=== PATIENT | male | born 1940 | race Caucasian/White ===

== ENCOUNTER 2018-12-07 16:35 | Inpatient (IN) | payer MEDICARE, OTHER ==
[~2018-12-07] VITALS: Ht 177.8 cm; Wt 51.7 kg
[2018-12-07] MEDS ORDERED: LOSA100T14 PO (16:59)
--- NOTE | 2018-12-07 17:01 | NUR ---
pt upright on gurney awake & comfortable, responds approp to staff, NAD, comfort measures provided, call light withiin reach.
[2018-12-07] MEDS ORDERED: PROCHLORPERAZINE 5 MG/ML, 2ML IVPush ONE (17:30)
[2018-12-07] MEDS ORDERED: SCOPOLAMINE PATCH, 1.5MG PATCH.TD72 TD ONE (17:30)
--- NOTE | 2018-12-07 17:31 | NUR ---
Pt to be admitted to medical, room 370. Report called to
[2018-12-07] MEDS ORDERED: ONDANSETRON ODT 4 MG PO PRN (18:00)
[2018-12-07] MEDS ORDERED: BISACODYL 10 MG SUPP PR PRN (18:00)
[2018-12-07] MEDS ORDERED: ENALAPRILAT 1.25 MG/ML, 2ML IVPush PRN (18:00)
[2018-12-07] MEDS ORDERED: ACETAMINOPHEN 325 MG TABLET PO PRN (18:00)
[2018-12-07] MEDS: NICOTINE 7 MG/24 HR PATCH.TD24 TD SCH (18:00)
[2018-12-07] MEDS ORDERED: POLYETHYLENE GLYCOL 17 GM PACKET PO PRN (18:00)
[2018-12-07 18:02] VITALS: BP 181/84
[2018-12-07] MEDS: SODIUM CHLORIDE FLUSH 10ML SYR IVF SCH (19:34)
[2018-12-07] MEDS: HEPARIN 5,000 UNITS/ML, 1ML SQ SCH (19:34)
[2018-12-07 20:08] VITALS: BP 165/77
[2018-12-08 01:42] VITALS: BP 153/80
[2018-12-08] MEDS: HEPARIN 5,000 UNITS/ML, 1ML SQ SCH ×3 (04:00→21:25)
[2018-12-08 06:27] LABS: BASOPHILS # (AUTO) 0.05 x10^3/uL (0-0.1); BASOPHILS % (AUTO) 1 % (0-1); EOSINOPHILS # (AUTO) 0.31 x10^3/uL (0-0.4); EOSINOPHILS % (AUTO) 5 % (1-7); LYMPHOCYTES # (AUTO) 1.99 x10^3/uL (1-3.4); LYMPHOCYTES % (AUTO) 29 % (22-44); MD NO; MEAN CORPUSCULAR HEMOGLOBIN 28.8 pg (27.5-34.5); MEAN CORPUSCULAR HGB CONC 33.8 g/dL (33.2-36.2); MEAN CORPUSCULAR VOLUME 85.3 fL (81-97); MEAN PLATELET VOLUME 7.5 fL (7.4-10.4); MONOCYTES # (AUTO) 0.58 x10^3/uL (0.2-0.8); MONOCYTES % (AUTO) 8 % (2-9); NEUTROPHILS # (AUTO) 4.06 x10^3/uL (1.8-6.8); NEUTROPHILS % (AUTO) 58 % (42-75); PLATELET COUNT 238 x10^3/uL (130-400); RED BLOOD COUNT 3.97 x10^6/uL (4.38-5.82); RED CELL DISTRIBUTION WIDTH 13.5 % (9.4-14.8)
[2018-12-08 06:35] VITALS: BP 136/73
[2018-12-08 06:38] LABS: ALANINE AMINOTRANSFERASE 12 U/L (12-78); ALBUMIN 3.1 g/dL (3.4-5.0); ANION GAP 5 mmol/L (5-15); CALCIUM 8.7 mg/dL (8.5-10.1); CHLORIDE 108 mmol/L (98-107); CHOLESTEROL, TOTAL 159 mg/dL (140-239); CREATININE 0.83 mg/dL (0.7-1.3); TRIGLYCERIDES 60 mg/dL (50-200); VLDL CHOLESTEROL 12 mg/dL (0-25)
[2018-12-08 06:40] LABS: ALKALINE PHOSPHATASE 80 U/L (45-117); BILIRUBIN,TOTAL 0.4 mg/dL (0.2-1.0); CHOL/HDL RATIO 3.9; HDL CHOL % 26 % (26-37); HDL CHOLESTEROL (DIRECT) 41 mg/dL (40-60); LDL CHOLESTEROL,CALCULATED 106 mg/dL (54-169); LDL/HDL RATIO 2.6 (0.5-3.0); TOTAL PROTEIN 6.3 g/dL (6.4-8.2)
[2018-12-08] MEDS: SENNA/DOCUSATE TABLET PO SCH (08:10)
[2018-12-08] MEDS: SODIUM CHLORIDE FLUSH 10ML SYR IVF SCH ×2 (08:10→21:25)
[2018-12-08] MEDS: LOSARTAN 50MG TABLET PO SCH (08:10)
[2018-12-08 12:50] VITALS: BP 137/79
[2018-12-08 14:00] VITALS: BP 138/73
[2018-12-08] MEDS ORDERED: OMNIPAQUE 350 MG/ML, 150 ML BOTTLE ONE (14:54)
[2018-12-08] MEDS: NICOTINE 7 MG/24 HR PATCH.TD24 TD SCH (18:00)
[2018-12-08 19:21] VITALS: BP 164/80
[2018-12-08] MEDS ORDERED: ATORVASTATIN 20 MG TABLET PO SCH (21:00)
[2018-12-09 01:30] VITALS: BP 154/77
[2018-12-09 05:10] LABS: BASOPHILS # (AUTO) 0.05 x10^3/uL (0-0.1); BASOPHILS % (AUTO) 1 % (0-1); EOSINOPHILS # (AUTO) 0.28 x10^3/uL (0-0.4); EOSINOPHILS % (AUTO) 4 % (1-7); LYMPHOCYTES # (AUTO) 2.04 x10^3/uL (1-3.4); LYMPHOCYTES % (AUTO) 28 % (22-44); MD NO; MEAN CORPUSCULAR HEMOGLOBIN 28.8 pg (27.5-34.5); MEAN CORPUSCULAR HGB CONC 34.2 g/dL (33.2-36.2); MEAN CORPUSCULAR VOLUME 84.3 fL (81-97); MEAN PLATELET VOLUME 7.1 fL (7.4-10.4); MONOCYTES # (AUTO) 0.58 x10^3/uL (0.2-0.8); MONOCYTES % (AUTO) 8 % (2-9); NEUTROPHILS # (AUTO) 4.24 x10^3/uL (1.8-6.8); NEUTROPHILS % (AUTO) 59 % (42-75); PLATELET COUNT 259 x10^3/uL (130-400); RED BLOOD COUNT 4.09 x10^6/uL (4.38-5.82); RED CELL DISTRIBUTION WIDTH 13.7 % (9.4-14.8)
[2018-12-09] MEDS: HEPARIN 5,000 UNITS/ML, 1ML SQ SCH ×2 (05:19→14:54)
[2018-12-09 05:24] LABS: ALBUMIN 3.2 g/dL (3.4-5.0); ANION GAP 6 mmol/L (5-15); CALCIUM 8.5 mg/dL (8.5-10.1); CHLORIDE 107 mmol/L (98-107)
[2018-12-09] MEDS ORDERED: ASPIRIN 81 MG TABLET EC PO SCH (09:30)
[2018-12-09 09:50] VITALS: BP 134/76
[2018-12-09] MEDS: SENNA/DOCUSATE TABLET PO SCH (10:23)
[2018-12-09] MEDS: LOSARTAN 50MG TABLET PO SCH (10:24)
[2018-12-09] MEDS: SODIUM CHLORIDE FLUSH 10ML SYR IVF SCH (10:24)
[2018-12-09 12:05] VITALS: BP 133/75
[2018-12-09] MEDS ORDERED: ATOR40TA78 PO (15:25)
[2018-12-09] MEDS ORDERED: ASPI81TA45 PO (15:25)
[2018-12-09] MEDS ORDERED: ATORVASTATIN 40 MG TABLET PO SCH (21:00)
== END 2018-12-09 17:01 | DRG 300 ==
LOC: ED 17:05 → EDIP 17:06 → ED 17:42 → 3NE 17:47 → DCLOUNGE 12-09 16:48
PROVIDERS: ADMIT Internal Medicine; ATTEND Internal Medicine
DX: I70.211 Atherosclerosis of native arteries of extremities with intermittent claudication, right leg (principal); E44.0 Moderate protein-calorie malnutrition; I71.4 Abdominal aortic aneurysm, without rupture; D64.9 Anemia, unspecified; F17.200 Nicotine dependence, unspecified, uncomplicated; I10 Essential (primary) hypertension; J44.9 Chronic obstructive pulmonary disease, unspecified; Z66 Do not resuscitate
CPT/HCPCS: 36415; 75635; 80048; 80053; 80061; 82040; 83735; 84100; 85025; 93005; 93970; G0378; J1644; Q9967

== ENCOUNTER 2019-01-05 12:46 | Inpatient (IN) | payer MEDICARE ==
[~2019-01-05] VITALS: Ht 177.8 cm; Wt 54.5 kg
[~2019-01-05 12:46] MED LIST: ASPI81TA45 PO; ATOR40TA78 PO; BACITRACIN 50,000 UNIT ONE; BUPIVACAINE/PF-EPI 0.5% 1:200K ONE; CEFAZOLIN 1,000 MG ONE; DEXAMETHASONE 4 MG/ML, 1ML ONE; LOSA100T14 PO; ONDANSETRON 2MG/ML, 2ML ONE; PROPOFOL 10 MG/ML, 20ML ONE; ROCURONIUM 10MG/ML,5ML ONE; SUCCINYLCHOLINE 20 MG/ML, 10ML ONE; THROMBIN 5,000 UNIT VIAL TP ONE
[2019-01-05 13:49] VITALS: BP 139/79
[2019-01-05] MEDS ORDERED: PROTAMINE SULFATE 10 MG/ML, 5ML ONE (14:01)
[2019-01-05] MEDS ORDERED: HEPARIN 1,000 UNITS/ML, 10ML ONE ×2 (14:01→18:13)
[2019-01-05] MEDS ORDERED: HEPARIN 5,000 UNITS/ML, 1ML ONE ×2 (14:01→14:03)
[2019-01-05] MEDS ORDERED: THROMBIN 20,000 UNIT VIAL TP ONE (14:01)
[2019-01-05] MEDS ORDERED: BACITRACIN 50,000 UNIT ONE (14:02)
[2019-01-05] MEDS ORDERED: ATOR20TA86 PO (14:04)
[2019-01-05] MEDS ORDERED: ASPI-496 PO (14:04)
[2019-01-05] MEDS: LACTATED RINGERS 1,000 ML IV SCH ×3 (14:18→20:54)
[2019-01-05] MEDS ORDERED: MIDAZOLAM 1 MG/ML, 2ML ONE (16:02)
[2019-01-05] MEDS ORDERED: FENTANYL PF 250 MCG/5ML ONE (16:02)
[2019-01-05] MEDS ORDERED: HYDROcodone/APAP 5/325 TABLET PO PRN (21:00)
[2019-01-05] MEDS ORDERED: MORPHINE SULFATE 4 MG/ML, 1ML IV PRN (21:00)
[2019-01-05] MEDS ORDERED: ONDANSETRON 2MG/ML, 2ML IVPush PRN (21:00)
[2019-01-05] MEDS: LABETALOL 5MG/ML, 20ML IVPush SCH (21:00)
[2019-01-05] MEDS ORDERED: HYDROmorphone 2 MG/ML, 1ML ONE (21:19)
[2019-01-05] MEDS ORDERED: MEPERIDINE/PF 25MG/ML,1ML ONE (21:22)
[2019-01-05] MEDS ORDERED: MEPERIDINE/PF 25MG/0.5ML IVPush PRN (21:30)
[2019-01-05] MEDS ORDERED: ONDANSETRON 2MG/ML, 2ML IV PRN (21:30)
[2019-01-05] MEDS ORDERED: FENTANYL PF 100 MCG/2ML IV PRN (21:30)
[2019-01-05] MEDS ORDERED: hydrALAzine 20 MG/ML, 1ML IV PRN (21:30)
[2019-01-05] MEDS ORDERED: PROMETHAZINE 25 MG/ML, 1ML IV PRN (21:30)
[2019-01-05] MEDS ORDERED: OXYcodone 5 MG/5 ML ORAL.SOL UDC PO PRN (21:30)
[2019-01-05] MEDS ORDERED: LABETALOL 5 MG/ML SYRINGE IV PRN (21:30)
[2019-01-05] MEDS: HYDROmorphone 2 MG/ML, 1ML IVPush PRN ×2 (21:37→21:52)
[2019-01-05 22:23] VITALS: BP 141/80
[2019-01-05 23:49] VITALS: BP 139/73
[2019-01-06] MEDS: LACTATED RINGERS 1,000 ML IV SCH (01:25)
[2019-01-06 02:59] VITALS: BP 121/64
[2019-01-06] MEDS: LABETALOL 5MG/ML, 20ML IVPush SCH ×2 (05:00→14:31)
[2019-01-06 05:15] LABS: BASOPHILS # (AUTO) 0.05 x10^3/uL (0-0.1); BASOPHILS % (AUTO) 1 % (0-1); EOSINOPHILS # (AUTO) 0.02 x10^3/uL (0-0.4); EOSINOPHILS % (AUTO) 0 % (1-7); LYMPHOCYTES # (AUTO) 0.95 x10^3/uL (1-3.4); LYMPHOCYTES % (AUTO) 9 % (22-44); MD NO; MEAN CORPUSCULAR HEMOGLOBIN 28.9 pg (27.5-34.5); MEAN CORPUSCULAR VOLUME 84.9 fL (81-97); MEAN PLATELET VOLUME 7.3 fL (7.4-10.4); MONOCYTES # (AUTO) 0.54 x10^3/uL (0.2-0.8); MONOCYTES % (AUTO) 5 % (2-9); NEUTROPHILS # (AUTO) 9.62 x10^3/uL (1.8-6.8); NEUTROPHILS % (AUTO) 86 % (42-75); PLATELET COUNT 302 x10^3/uL (130-400); RED BLOOD COUNT 3.33 x10^6/uL (4.38-5.82); RED CELL DISTRIBUTION WIDTH 13.5 % (9.4-14.8)
[2019-01-06] MEDS: ASPIRIN 325 MG TABLET EC PO SCH (05:55)
[2019-01-06 07:03] VITALS: BP 137/72
[2019-01-06] MEDS: HEPARIN 5,000 UNITS/ML, 1ML SQ SCH ×2 (07:59→17:01)
[2019-01-06 13:57] VITALS: BP 148/73
[2019-01-06 18:38] VITALS: BP 139/71
[2019-01-06] MEDS: ATORVASTATIN 40 MG TABLET PO SCH (20:26)
[2019-01-07 00:16] VITALS: BP 133/78
[2019-01-07] MEDS: HEPARIN 5,000 UNITS/ML, 1ML SQ SCH ×3 (00:38→15:45)
[2019-01-07] MEDS: ASPIRIN 325 MG TABLET EC PO SCH (06:27)
[2019-01-07 07:30] VITALS: BP 140/78
[2019-01-07] MEDS: LOSARTAN 50MG TABLET PO SCH (08:25)
[2019-01-07 13:15] VITALS: BP 115/72
[2019-01-07 18:40] VITALS: BP 136/78
[2019-01-07] MEDS: ATORVASTATIN 40 MG TABLET PO SCH (21:41)
[2019-01-08 00:13] VITALS: BP 125/70
[2019-01-08] MEDS: HEPARIN 5,000 UNITS/ML, 1ML SQ SCH ×2 (01:26→08:40)
[2019-01-08] MEDS: ASPIRIN 325 MG TABLET EC PO SCH (05:24)
[2019-01-08 06:52] VITALS: BP 134/72
[2019-01-08] MEDS: LOSARTAN 50MG TABLET PO SCH (08:40)
== END 2019-01-08 13:00 | DRG 253 ==
LOC: ORIP 12:46 → 4NOR 22:11
PROVIDERS: ADMIT Surgery; ATTEND Surgery
PROC: 03HY32Z Insertion of Monitoring Device into Upper Artery, Percutaneous Approach (ICD-10-PCS; 2019-01-05)
PROC: 04CK0ZZ Extirpation of Matter from Right Femoral Artery, Open Approach (ICD-10-PCS; principal; 2019-01-06)
PROC: B41F1ZZ Fluoroscopy of Right Lower Extremity Arteries using Low Osmolar Contrast (ICD-10-PCS; 2019-01-06)
PROC: 04UK0KZ Supplement Right Femoral Artery with Nonautologous Tissue Substitute, Open Approach (ICD-10-PCS; 2019-01-06)
PROC: 041K0ZL Bypass Right Femoral Artery to Popliteal Artery, Open Approach (ICD-10-PCS; 2019-01-06)
PROC: 06BP0ZZ Excision of Right Saphenous Vein, Open Approach (ICD-10-PCS; 2019-01-06)
DX: I70.221 Atherosclerosis of native arteries of extremities with rest pain, right leg (principal); Z68.1 Body mass index [BMI] 19.9 or less, adult; I99.8 Other disorder of circulatory system; R63.6 Underweight
CPT/HCPCS: 36415; 71045; 75710; 85025; 85347; 86850; 86900; 88305; 88311; 93005; G0378; J0690; J1100; J1170; J1644; J2175; J2250; J2405; J2704; J2720; J3010; C1768; J0330; J7120

== ENCOUNTER 2020-03-23 12:22 | Inpatient (IN) | payer MEDICARE, MEDICAID ==
[~2020-03-23] VITALS: Ht 177.8 cm; Wt 68.4 kg
[~2020-03-23 12:22] MED LIST changes: +ACET325T26 PO; +ALEN10TA10 PO; +ASPI-496 PO; +ATOR20TA86 PO; -BACITRACIN 50,000 UNIT ONE; -BUPIVACAINE/PF-EPI 0.5% 1:200K ONE; +CALC1TAB68 PO; +CARV3.1212 PO; -CEFAZOLIN 1,000 MG ONE; -DEXAMETHASONE 4 MG/ML, 1ML ONE; +ENOX40SY4 SQ; +FERR-51 PO; +MAGN400T50 PO; -ONDANSETRON 2MG/ML, 2ML ONE; -PROPOFOL 10 MG/ML, 20ML ONE; -ROCURONIUM 10MG/ML,5ML ONE; -SUCCINYLCHOLINE 20 MG/ML, 10ML ONE; -THROMBIN 5,000 UNIT VIAL TP ONE
[2020-03-23] MEDS ORDERED: SODIUM CHLORIDE 0.9% 1,000 ML IV ONE (12:26)
[2020-03-23] MEDS ORDERED: HYDROmorphone 1 MG/ML, 1ML INJ IVPush PRN ×2 (12:30→17:00)
[2020-03-23] MEDS ORDERED: ONDANSETRON 2MG/ML, 2ML IVPush ONE (12:30)
[2020-03-23] MEDS ORDERED: SODIUM CHLORIDE FLUSH 10ML SYR IVF ONE (12:30)
--- NOTE | 2020-03-23 12:36 | NUR ---
PT BIB EMS FROM [facility]. PT FOUND TO HAVE RIGHT HIP FRACTURE. CMS INTACT. DENIES CP OR SOB. AFEBRILE. PT STATES HE WENT TO BATHROOM AND SLIPPED. DENIES LOC OR OTHER INJURY. PAIN 04/09. PT REFUSING PAIN MEDS AT THIS TIME. VSS. IV IN ROUTE. 500 ML NS.
[2020-03-23 12:53] LABS: BASOPHILS # (AUTO) 0.03 x10^3/uL (0-0.1); BASOPHILS % (AUTO) 0 % (0-1); EOSINOPHILS # (AUTO) 0.15 x10^3/uL (0-0.4); EOSINOPHILS % (AUTO) 2 % (1-7); LYMPHOCYTES # (AUTO) 1.55 x10^3/uL (1-3.4); LYMPHOCYTES % (AUTO) 17 % (22-44); MD NO; MEAN CORPUSCULAR HEMOGLOBIN 30.2 pg (27.5-34.5); MEAN CORPUSCULAR HGB CONC 33.6 g/dL (33.2-36.2); MEAN PLATELET VOLUME 7.2 fL (7.4-10.4); MONOCYTES # (AUTO) 0.57 x10^3/uL (0.2-0.8); MONOCYTES % (AUTO) 6 % (2-9); NEUTROPHILS # (AUTO) 7.01 x10^3/uL (1.8-6.8); NEUTROPHILS % (AUTO) 75 % (42-75); PLATELET COUNT 242 x10^3/uL (130-400); RED BLOOD COUNT 3.71 x10^6/uL (4.38-5.82); RED CELL DISTRIBUTION WIDTH 13.6 % (9.4-14.8)
[2020-03-23 13:03] LABS: ALBUMIN 3.1 g/dL (3.4-5.0); ANION GAP 6 mmol/L (5-15); CALCIUM 8.2 mg/dL (8.5-10.1); CHLORIDE 109 mmol/L (98-107); CREATININE 0.87 mg/dL (0.7-1.3)
[2020-03-23 13:11] LABS: INTERNATIONAL NORMALIZED RATIO 1.02 (0.93-1.1); PROTHROMBIN TIME 10.8 Seconds (9.6-11.5)
--- NOTE | 2020-03-23 13:27 | NUR ---
TASK RN: PT STATES HE IS IN MODERATE PAIN. VSS UPDATED IN EMR AT THIS TIME. WILL MEDICATE PER MAR FOR PAIN.
[2020-03-23] MEDS ORDERED: HYDROmorphone 1 MG/ML, 1ML INJ ONE (13:33)
--- NOTE | 2020-03-23 13:38 | NUR ---
TASK RN: PT MEDICATED FOR PAIN PER MAR. PT PLACED ON 2L O2 NC AT THIS TIME. PT DENIES ANY OTHER NEEDS
[2020-03-23] MEDS ORDERED: ONDANSETRON 2MG/ML, 2ML ONE ×2 (13:44→16:57)
--- NOTE | 2020-03-23 14:15 | NUR ---
ALIZE, THE PTS POA, CALLED AND REQUESTED UPDATE BEFORE PT GOES TO SURGERY. PHONE #
--- NOTE | 2020-03-23 14:58 | NUR ---
REPORT TO OR, PT NEEDS RAPID COVID
[2020-03-23] MEDS ORDERED: CHLORHEXIDINE 15 ML UDC MM ONE (15:00)
[2020-03-23] MEDS ORDERED: FENTANYL PF 100 MCG/2ML ONE ×2 (15:32→17:50)
[2020-03-23] MEDS ORDERED: SUCCINYLCHOLINE 20 MG/ML, 10ML ONE (16:15)
[2020-03-23] MEDS ORDERED: TRANEXAMIC ACID 100 MG/ML, 10ML ONE ×2 (16:45)
[2020-03-23] MEDS ORDERED: DEXAMETHASONE 4 MG/ML, 1ML ONE (16:57)
[2020-03-23] MEDS ORDERED: PROPOFOL 10 MG/ML, 20ML ONE (16:57)
[2020-03-23] MEDS ORDERED: CEFAZOLIN 1,000 MG ONE (16:57)
[2020-03-23] MEDS ORDERED: ALBUTEROL SULFATE 2.5 MG/3 ML NPPB PRN (17:00)
[2020-03-23] MEDS ORDERED: LABETALOL 5MG/ML, 20ML IV PRN (17:00)
[2020-03-23] MEDS ORDERED: MIDAZOLAM 1 MG/ML, 2ML IV PRN (17:00)
[2020-03-23] MEDS ORDERED: hydrALAzine 20 MG/ML, 1ML IV PRN (17:00)
[2020-03-23] MEDS ORDERED: FENTANYL PF 100 MCG/2ML IV PRN (17:00)
[2020-03-23] MEDS ORDERED: ACETAMINOPHEN 325 MG TABLET PO PRN ×3 (17:00→20:30)
[2020-03-23] MEDS ORDERED: PROMETHAZINE 25 MG/ML, 1ML IVPush PRN (17:00)
[2020-03-23] MEDS ORDERED: OXYcodone 5 MG/5 ML ORAL.SOL UDC PO PRN (17:00)
[2020-03-23] MEDS ORDERED: MEPERIDINE/PF 25MG/ML,1ML ONE (17:41)
[2020-03-23] MEDS ORDERED: hydrALAzine 20 MG/ML, 1ML ONE (18:21)
[2020-03-23] MEDS ORDERED: MEPERIDINE/PF 25MG/0.5ML IVPush PRN (18:30)
[2020-03-23] MEDS ORDERED: OXYcodone 5 MG/5 ML ORAL.SOL UDC ONE (19:07)
[2020-03-23] MEDS ORDERED: PROMETHAZINE 25 MG/ML, 1ML IM PRN (19:30)
[2020-03-23] MEDS ORDERED: OXYcodone IR 5MG TABLET PO PRN (19:30)
[2020-03-23] MEDS ORDERED: MELATONIN 5 MG TABLET PO PRN (19:30)
[2020-03-23] MEDS ORDERED: POLYETHYLENE GLYCOL 17 GM PACKET PO PRN (19:30)
[2020-03-23] MEDS ORDERED: BISACODYL 10 MG SUPP PR PRN ×2 (19:30→20:30)
[2020-03-23] MEDS ORDERED: morphine SULFATE 10 MG/ML, 1ML IVPush PRN (19:30)
[2020-03-23] MEDS ORDERED: hydrALAzine 20 MG/ML, 1ML IVPush PRN (19:30)
[2020-03-23] MEDS ORDERED: HYDROcodone/APAP 5/325 TABLET PO PRN ×2 (19:30→20:30)
[2020-03-23] MEDS ORDERED: ONDANSETRON 2MG/ML, 2ML IVPush PRN (19:30)
[2020-03-23] MEDS: FERROUS SULFATE 325 MG TABLET PO SCH (19:30)
[2020-03-23] MEDS ORDERED: ENOXAPARIN 40 MG/0.4 ML SQ SCH (20:00)
[2020-03-23 20:25] VITALS: BP 130/72
[2020-03-23] MEDS ORDERED: SENNA/DOCUSATE TABLET PO PRN (20:30)
[2020-03-23] MEDS ORDERED: ALUMINUM/MAG/SIMETHICONE 30 ML UDC PO PRN (20:30)
[2020-03-23] MEDS ORDERED: HYDROmorphone 2 MG/ML, 1ML IVPush PRN (20:30)
[2020-03-23] MEDS ORDERED: ONDANSETRON 2MG/ML, 2ML IV PRN (20:30)
[2020-03-23] MEDS ORDERED: MAGNESIUM HYDROXIDE 8%, 30ML UDC PO PRN (20:30)
[2020-03-23] MEDS ORDERED: D5%-LACTATED RINGERS 1,000 ML IV SCH (20:30)
[2020-03-23 20:59] LABS: ANION GAP 9 mmol/L (5-15); CALCIUM 8.2 mg/dL (8.5-10.1); CHLORIDE 109 mmol/L (98-107); CREATININE 0.86 mg/dL (0.7-1.3)
[2020-03-23] MEDS ORDERED: SODIUM CHLORIDE FLUSH 10ML SYR IVF SCH (21:00)
[2020-03-23] MEDS: DOCUSATE 100 MG CAPSULE PO SCH (22:18)
[2020-03-23] MEDS: CALCIUM/VITAMIN D3 250-125 TABLET PO SCH (22:18)
[2020-03-23] MEDS: ATORVASTATIN 40 MG TABLET PO SCH (22:18)
[2020-03-23] MEDS: OXYcodone 5 MG/5 ML ORAL.SOL UDC PO PRN (23:32)
[2020-03-24] VITALS (7 sets, daily range): BP systolic 113–137; BP diastolic 55–76
[2020-03-24] MEDS: CEFAZOLIN PMX 2GM/50ML 50 ML IVPB SCH ×2 (00:06→08:27)
[2020-03-24 00:17] LABS: MICROSCOPIC NOT IND
[2020-03-24 06:14] LABS: BASOPHILS # (AUTO) 0.02 x10^3/uL (0-0.1); BASOPHILS % (AUTO) 0 % (0-1); EOSINOPHILS % (AUTO) 0 % (1-7); LYMPHOCYTES # (AUTO) 1.25 x10^3/uL (1-3.4); LYMPHOCYTES % (AUTO) 16 % (22-44); MD NO; MEAN CORPUSCULAR HEMOGLOBIN 30.3 pg (27.5-34.5); MEAN PLATELET VOLUME 7.5 fL (7.4-10.4); MONOCYTES # (AUTO) 0.75 x10^3/uL (0.2-0.8); MONOCYTES % (AUTO) 10 % (2-9); NEUTROPHILS # (AUTO) 5.76 x10^3/uL (1.8-6.8); NEUTROPHILS % (AUTO) 74 % (42-75); PLATELET COUNT 200 x10^3/uL (130-400); RED BLOOD COUNT 2.78 x10^6/uL (4.38-5.82); RED CELL DISTRIBUTION WIDTH 13.9 % (9.4-14.8)
[2020-03-24 06:24] LABS: ANION GAP 5 mmol/L (5-15); CALCIUM 8.2 mg/dL (8.5-10.1); CHLORIDE 110 mmol/L (98-107); CREATININE 0.96 mg/dL (0.7-1.3)
[2020-03-24] MEDS: ALENDRONATE 10 MG TABLET PO SCH (06:39)
[2020-03-24] MEDS: CARVEDILOL 3.125 MG TABLET PO SCH ×2 (06:39→18:12)
[2020-03-24] MEDS: MULTIVITAMINS/MINERALS TABLET PO SCH (08:27)
[2020-03-24] MEDS: CALCIUM/VITAMIN D3 250-125 TABLET PO SCH ×2 (08:27→20:44)
[2020-03-24] MEDS: DOCUSATE 100 MG CAPSULE PO SCH ×2 (08:27→20:43)
[2020-03-24] MEDS: ASPIRIN 81 MG TABLET EC PO SCH ×2 (08:28→20:44)
[2020-03-24 08:33] LABS: ALBUMIN 2.8 g/dL (3.4-5.0); BILIRUBIN, DIRECT 0.2 mg/dL (0.1-0.2)
[2020-03-24 08:35] LABS: BILIRUBIN,INDIRECT 0.4 mg/dL (0.0-2.0); BILIRUBIN,TOTAL 0.6 mg/dL (0.2-1.0); TOTAL PROTEIN 5.7 g/dL (6.4-8.2)
[2020-03-24] MEDS ORDERED: SENNA/DOCUSATE TABLET PO SCH (09:00)
[2020-03-24] MEDS ORDERED: LOSARTAN 100 MG TAB PO SCH (09:00)
[2020-03-24 09:18] LABS: TROPONIN I 0.043 ng/mL (0.000-0.045)
[2020-03-24] MEDS ORDERED: NITROGLYCERIN 0.4 MG BOTTLE (25 TABS) SL PRN (10:00)
[2020-03-24] MEDS ORDERED: NITROGLYCERIN 0.4 MG/SPRAY SL PRN (10:00)
[2020-03-24] MEDS ORDERED: CEFTRIAXONE PMX 1GM/50ML 50 ML IV SCH (10:00)
[2020-03-24] MEDS ORDERED: morphine SULFATE 10 MG/ML, 1ML IVPush PRN (10:30)
[2020-03-24] MEDS: OXYcodone 5 MG/5 ML ORAL.SOL UDC PO PRN (10:44)
[2020-03-24] MEDS: METRONIDAZOLE PMX 500MG/100ML 100 ML IV SCH ×2 (12:06→20:43)
[2020-03-24 16:06] LABS: TROPONIN I 0.047 ng/mL (0.000-0.045)
[2020-03-24] MEDS ORDERED: D5%-LACTATED RINGERS 1,000 ML IV SCH (20:30)
[2020-03-24] MEDS: ATORVASTATIN 40 MG TABLET PO SCH (20:43)
[2020-03-24 21:13] LABS: TROPONIN I 0.042 ng/mL (0.000-0.045)
[2020-03-25 02:04] VITALS: BP 102/66
[2020-03-25] MEDS ORDERED: methylPREDNISolone SOD SUCC 40 MG/ML IV PRN (05:30)
[2020-03-25] MEDS ORDERED: methylPREDNISolone SOD SUCC 40 MG/ML IV SCH ×2 (05:30→06:00)
[2020-03-25 05:55] LABS: ANION GAP 6 mmol/L (5-15); CALCIUM 8.3 mg/dL (8.5-10.1); CHLORIDE 107 mmol/L (98-107)
[2020-03-25 05:57] LABS: CREATININE 0.99 mg/dL (0.7-1.3)
[2020-03-25] MEDS: METRONIDAZOLE PMX 500MG/100ML 100 ML IV SCH (06:08)
[2020-03-25 06:14] LABS: BASOPHILS # (AUTO) 0.04 x10^3/uL (0-0.1); BASOPHILS % (AUTO) 0 % (0-1); EOSINOPHILS # (AUTO) 0.02 x10^3/uL (0-0.4); EOSINOPHILS % (AUTO) 0 % (1-7); LYMPHOCYTES # (AUTO) 2.01 x10^3/uL (1-3.4); LYMPHOCYTES % (AUTO) 18 % (22-44); MD NO; MEAN CORPUSCULAR HEMOGLOBIN 30.2 pg (27.5-34.5); MEAN CORPUSCULAR HGB CONC 33.1 g/dL (33.2-36.2); MEAN PLATELET VOLUME 7.6 fL (7.4-10.4); MONOCYTES # (AUTO) 1.04 x10^3/uL (0.2-0.8); MONOCYTES % (AUTO) 9 % (2-9); NEUTROPHILS # (AUTO) 8.32 x10^3/uL (1.8-6.8); NEUTROPHILS % (AUTO) 73 % (42-75); PLATELET COUNT 229 x10^3/uL (130-400); RED BLOOD COUNT 2.72 x10^6/uL (4.38-5.82); RED CELL DISTRIBUTION WIDTH 13.9 % (9.4-14.8)
[2020-03-25 06:50] VITALS: BP 104/62
[2020-03-25] MEDS ORDERED: VANCOMYCIN PER PHARMACY MC PRN (08:00)
[2020-03-25] MEDS ORDERED: VANCOMYCIN PMX 1GM/200ML 200 ML IV ONE (08:00)
[2020-03-25] MEDS: PIPERACILLIN/TAZO/PMX 3.375GM 50 ML IV SCH ×3 (09:00→22:50)
[2020-03-25] MEDS ORDERED: VANCOMYCIN 1,500 MG in SODIUM CHLORIDE 0.9% 250 ML IV ONE (10:00)
[2020-03-25] MEDS ORDERED: PHARMACOKINETIC MONITORING MC PRN (10:00)
[2020-03-25] MEDS: MULTIVITAMINS/MINERALS TABLET PO SCH (10:18)
[2020-03-25] MEDS: CALCIUM/VITAMIN D3 250-125 TABLET PO SCH ×2 (10:18→21:02)
[2020-03-25] MEDS: DOCUSATE 100 MG CAPSULE PO SCH ×2 (10:18→21:02)
[2020-03-25] MEDS: ASPIRIN 81 MG TABLET EC PO SCH ×2 (10:18→21:02)
[2020-03-25] MEDS: methylPREDNISolone SOD SUCC 125 MG/2 ML IV SCH ×3 (10:18→22:50)
[2020-03-25] MEDS: ALENDRONATE 10 MG TABLET PO SCH (10:19)
[2020-03-25 13:10] VITALS: BP 104/66
[2020-03-25] MEDS: CARVEDILOL 3.125 MG TABLET PO SCH (17:41)
[2020-03-25 20:48] VITALS: BP 124/71
[2020-03-25] MEDS: FERROUS SULFATE 325 MG TABLET PO SCH (21:02)
[2020-03-25] MEDS: ATORVASTATIN 40 MG TABLET PO SCH (21:02)
[2020-03-26] MEDS: PIPERACILLIN/TAZO/PMX 3.375GM 50 ML IV SCH ×4 (04:53→22:05)
[2020-03-26 04:54] VITALS: BP 128/74
[2020-03-26] MEDS: CARVEDILOL 3.125 MG TABLET PO SCH ×2 (04:54→18:22)
[2020-03-26] MEDS: ALENDRONATE 10 MG TABLET PO SCH (04:54)
[2020-03-26] MEDS: methylPREDNISolone SOD SUCC 125 MG/2 ML IV SCH ×4 (04:54→20:36)
[2020-03-26 05:03] LABS: BASOPHILS # (AUTO) 0.01 x10^3/uL (0-0.1); BASOPHILS % (AUTO) 0 % (0-1); EOSINOPHILS # (AUTO) 0.01 x10^3/uL (0-0.4); EOSINOPHILS % (AUTO) 0 % (1-7); LYMPHOCYTES # (AUTO) 0.78 x10^3/uL (1-3.4); LYMPHOCYTES % (AUTO) 7 % (22-44); MD NO; MEAN CORPUSCULAR HGB CONC 33.4 g/dL (33.2-36.2); MEAN PLATELET VOLUME 7.7 fL (7.4-10.4); MONOCYTES # (AUTO) 0.41 x10^3/uL (0.2-0.8); MONOCYTES % (AUTO) 4 % (2-9); NEUTROPHILS # (AUTO) 9.42 x10^3/uL (1.8-6.8); NEUTROPHILS % (AUTO) 89 % (42-75); PLATELET COUNT 200 x10^3/uL (130-400); RED BLOOD COUNT 2.58 x10^6/uL (4.38-5.82)
[2020-03-26 05:06] LABS: ALANINE AMINOTRANSFERASE 11 U/L (12-78); ALBUMIN 2.3 g/dL (3.4-5.0); ANION GAP 8 mmol/L (5-15); CHLORIDE 110 mmol/L (98-107); CREATININE 1.01 mg/dL (0.7-1.3)
[2020-03-26 05:11] LABS: ALKALINE PHOSPHATASE 62 U/L (45-117); BILIRUBIN,TOTAL 0.7 mg/dL (0.2-1.0); TOTAL PROTEIN 5.8 g/dL (6.4-8.2); VANCOMYCIN,RANDOM 6.9 mcg/mL
[2020-03-26 09:05] VITALS: BP 107/65
[2020-03-26] MEDS: DOCUSATE 100 MG CAPSULE PO SCH ×2 (10:16→20:35)
[2020-03-26] MEDS: CALCIUM/VITAMIN D3 250-125 TABLET PO SCH ×2 (10:16→20:35)
[2020-03-26] MEDS: MULTIVITAMINS/MINERALS TABLET PO SCH (10:16)
[2020-03-26] MEDS: ASPIRIN 81 MG TABLET EC PO SCH ×2 (10:16→20:35)
[2020-03-26] MEDS: VANCOMYCIN PMX 1GM/200ML 200 ML IVPB SCH (12:51)
[2020-03-26 16:20] VITALS: BP 111/67
[2020-03-26 20:31] VITALS: BP 160/50
[2020-03-26] MEDS: ATORVASTATIN 40 MG TABLET PO SCH (20:35)
[2020-03-27] VITALS (11 sets, daily range): BP systolic 99–121; BP diastolic 50–70
[2020-03-27] MEDS: methylPREDNISolone SOD SUCC 125 MG/2 ML IV SCH ×4 (04:12→21:18)
[2020-03-27] MEDS: PIPERACILLIN/TAZO/PMX 3.375GM 50 ML IV SCH ×4 (04:13→21:18)
[2020-03-27 05:23] LABS: MEAN CORPUSCULAR HEMOGLOBIN 30.4 pg (27.5-34.5); MEAN PLATELET VOLUME 7.7 fL (7.4-10.4); PLATELET COUNT 201 x10^3/uL (130-400); RED BLOOD COUNT 2.28 x10^6/uL (4.38-5.82); RED CELL DISTRIBUTION WIDTH 13.7 % (9.4-14.8)
[2020-03-27 05:24] LABS: ANION GAP 5 mmol/L (5-15); CALCIUM 8.4 mg/dL (8.5-10.1); CHLORIDE 112 mmol/L (98-107)
[2020-03-27 05:25] LABS: CREATININE 1.01 mg/dL (0.7-1.3)
[2020-03-27 06:00] LABS: BASOPHILS # (AUTO) 0.01 x10^3/uL (0-0.1); BASOPHILS % (AUTO) 0 % (0-1); EOSINOPHILS % (AUTO) 0 % (1-7); LYMPHOCYTES # (AUTO) 0.72 x10^3/uL (1-3.4); LYMPHOCYTES % (AUTO) 9 % (22-44); MD SCAN; MONOCYTES # (AUTO) 0.47 x10^3/uL (0.2-0.8); MONOCYTES % (AUTO) 6 % (2-9); NEUTROPHILS # (AUTO) 6.51 x10^3/uL (1.8-6.8); NEUTROPHILS % (AUTO) 84 % (42-75)
[2020-03-27] MEDS: ALENDRONATE 10 MG TABLET PO SCH (06:17)
[2020-03-27] MEDS: VANCOMYCIN PMX 1GM/200ML 200 ML IVPB SCH (06:17)
[2020-03-27] MEDS: CARVEDILOL 3.125 MG TABLET PO SCH ×2 (06:19→17:48)
[2020-03-27] MEDS: DOCUSATE 100 MG CAPSULE PO SCH ×2 (09:52→21:17)
[2020-03-27] MEDS: ASPIRIN 81 MG TABLET EC PO SCH ×2 (09:52→21:29)
[2020-03-27] MEDS: MULTIVITAMINS/MINERALS TABLET PO SCH (09:53)
[2020-03-27] MEDS: CALCIUM/VITAMIN D3 250-125 TABLET PO SCH ×2 (09:53→21:17)
[2020-03-27] MEDS: POTASSIUM CHLORIDE 20 MEQ TAB.ER.PRT PO SCH ×2 (12:00→17:00)
[2020-03-27] MEDS: FERROUS SULFATE 325 MG TABLET PO SCH (21:17)
[2020-03-27] MEDS: ATORVASTATIN 40 MG TABLET PO SCH (21:17)
[2020-03-28] MEDS: VANCOMYCIN PMX 1GM/200ML 200 ML IVPB SCH (00:34)
[2020-03-28] MEDS: PIPERACILLIN/TAZO/PMX 3.375GM 50 ML IV SCH ×3 (03:34→17:17)
[2020-03-28] MEDS: methylPREDNISolone SOD SUCC 125 MG/2 ML IV SCH ×4 (03:34→21:19)
[2020-03-28 05:47] VITALS: BP 130/72
[2020-03-28] MEDS: ALENDRONATE 10 MG TABLET PO SCH (05:52)
[2020-03-28] MEDS: CARVEDILOL 3.125 MG TABLET PO SCH ×2 (05:53→16:16)
[2020-03-28 07:31] LABS: ALANINE AMINOTRANSFERASE 9 U/L (12-78); ALBUMIN 2.1 g/dL (3.4-5.0); ANION GAP 7 mmol/L (5-15); CHLORIDE 110 mmol/L (98-107); CREATININE 0.92 mg/dL (0.7-1.3)
[2020-03-28 07:33] LABS: ALKALINE PHOSPHATASE 47 U/L (45-117); TOTAL PROTEIN 5.6 g/dL (6.4-8.2)
[2020-03-28 08:51] VITALS: BP 151/74
[2020-03-28] MEDS: CALCIUM/VITAMIN D3 250-125 TABLET PO SCH ×2 (09:00→21:21)
[2020-03-28] MEDS: ASPIRIN 81 MG TABLET EC PO SCH ×2 (10:56→21:21)
[2020-03-28] MEDS: DOCUSATE 100 MG CAPSULE PO SCH ×2 (10:56→21:21)
[2020-03-28] MEDS: MULTIVITAMINS/MINERALS TABLET PO SCH (10:56)
[2020-03-28 12:36] VITALS: BP 133/66
[2020-03-28 16:16] VITALS: BP 152/80
[2020-03-28] MEDS ORDERED: SODIUM CHLORIDE 0.9% 1,000 ML IV SCH (18:00)
[2020-03-28 21:11] VITALS: BP 147/70
[2020-03-28] MEDS: ATORVASTATIN 40 MG TABLET PO SCH (21:21)
[2020-03-28] MEDS: DOXYCYCLINE 100MG TABLET PO SCH (21:21)
[2020-03-28] MEDS: LACTOBACILLUS 1GM/ PACKET PO SCH (21:21)
[2020-03-28] MEDS: AMOXICILLIN/CLAV 875-125MG TABLET PO SCH (21:24)
[2020-03-29 00:40] VITALS: BP 154/75
[2020-03-29 05:26] LABS: BASOPHILS % (AUTO) 0 % (0-1); EOSINOPHILS % (AUTO) 0 % (1-7); LYMPHOCYTES # (AUTO) 0.51 x10^3/uL (1-3.4); LYMPHOCYTES % (AUTO) 7 % (22-44); MD NO; MEAN CORPUSCULAR HEMOGLOBIN 29.9 pg (27.5-34.5); MEAN CORPUSCULAR HGB CONC 33.4 g/dL (33.2-36.2); MONOCYTES # (AUTO) 0.31 x10^3/uL (0.2-0.8); MONOCYTES % (AUTO) 4 % (2-9); NEUTROPHILS # (AUTO) 6.29 x10^3/uL (1.8-6.8); NEUTROPHILS % (AUTO) 88 % (42-75); PLATELET COUNT 228 x10^3/uL (130-400); RED BLOOD COUNT 3.02 x10^6/uL (4.38-5.82); RED CELL DISTRIBUTION WIDTH 13.6 % (9.4-14.8)
[2020-03-29 05:29] LABS: ALBUMIN 2.1 g/dL (3.4-5.0); ANION GAP 7 mmol/L (5-15); CALCIUM 8.1 mg/dL (8.5-10.1); CHLORIDE 110 mmol/L (98-107)
[2020-03-29 05:33] LABS: ALANINE AMINOTRANSFERASE 9 U/L (12-78); ALKALINE PHOSPHATASE 46 U/L (45-117); BILIRUBIN,TOTAL 0.8 mg/dL (0.2-1.0); CREATININE 0.87 mg/dL (0.7-1.3); TOTAL PROTEIN 5.5 g/dL (6.4-8.2)
[2020-03-29 05:57] VITALS: BP 151/77
[2020-03-29] MEDS: ALENDRONATE 10 MG TABLET PO SCH (05:58)
[2020-03-29] MEDS: CARVEDILOL 3.125 MG TABLET PO SCH (05:59)
[2020-03-29 07:38] VITALS: BP 152/78
[2020-03-29] MEDS: methylPREDNISolone SOD SUCC 125 MG/2 ML IV SCH (09:32)
[2020-03-29] MEDS: AMOXICILLIN/CLAV 875-125MG TABLET PO SCH (09:32)
[2020-03-29] MEDS: ASPIRIN 81 MG TABLET EC PO SCH (09:33)
[2020-03-29] MEDS: LACTOBACILLUS 1GM/ PACKET PO SCH (09:33)
[2020-03-29] MEDS: MULTIVITAMINS/MINERALS TABLET PO SCH (09:33)
[2020-03-29] MEDS: CALCIUM/VITAMIN D3 250-125 TABLET PO SCH (09:33)
[2020-03-29] MEDS: DOCUSATE 100 MG CAPSULE PO SCH (09:33)
[2020-03-29] MEDS: DOXYCYCLINE 100MG TABLET PO SCH (09:33)
[2020-03-29] MEDS ORDERED: DOXY100T PO (10:25)
[2020-03-29] MEDS ORDERED: AMOX1TAB12 PO (10:25)
[2020-03-29] MEDS ORDERED: ASPI81TA45 PO (10:25)
[2020-03-29] MEDS ORDERED: FERR-51 PO (10:25)
[2020-03-29] MEDS ORDERED: CARV3.1212 PO (10:25)
[2020-03-29] MEDS ORDERED: LACT1TAB13 PO (10:25)
[2020-03-29] MEDS ORDERED: SENN-193 PO (10:25)
[2020-03-29] MEDS ORDERED: ATOR40TA78 PO (10:25)
[2020-03-29] MEDS ORDERED: MELA5TAB14 PO (10:25)
[2020-03-29] MEDS ORDERED: MAGN400O7 PO (10:25)
[2020-03-29] MEDS ORDERED: BISA10SU4 PR (10:25)
[2020-03-29] MEDS ORDERED: DOCU100C33 PO (10:25)
[2020-03-29] MEDS ORDERED: ALEN10TA10 PO (10:25)
[2020-03-29] MEDS ORDERED: PRED20TA PO (10:25)
[2020-03-29] MEDS ORDERED: MULT-484 PO (10:25)
[2020-03-29] MEDS ORDERED: ACET325T26 PO (10:25)
[2020-03-29] MEDS ORDERED: CALC1TAB68 PO (10:25)
[2020-03-29] MEDS ORDERED: POLY17PO5 PO (10:25)
[2020-03-29] MEDS ORDERED: OXYcodone IR 5MG TABLET ONE (10:27)
[2020-03-29] MEDS ORDERED: OXYcodone 5 MG/5 ML ORAL.SOL UDC PO PRN (10:30)
[2020-03-29] MEDS ORDERED: LOSA25TA2 PO (10:47)
[2020-03-29] MEDS ORDERED: ACETAMINOPHEN 325 MG TABLET PO PRN (12:30)
[2020-03-30] MEDS ORDERED: LOSARTAN 25MG TABLET PO SCH (09:00)
[2020-04-10] MEDS ORDERED: HEPA50002 SQ (08:30)
[2020-04-10] MEDS ORDERED: CALC200T24 PO (08:30)
[2020-04-10] MEDS ORDERED: DOCU50LI26 PO (08:30)
[2020-04-10] MEDS ORDERED: LEVO500T47 PO (08:30)
[2020-04-10] MEDS ORDERED: CARV6.2512 PO (08:30)
[2020-04-10] MEDS ORDERED: MULT9LIQ10 PO (08:30)
== END 2020-03-29 12:19 | disposition short-term general hospital (02) | DRG 480 ==
LOC: MERGE 13:39 → ED 13:39 → INTOOBSV 14:32 → OBSVTOIN 14:32 → EDIP 14:32 → 4NE 19:29 → 5SO 03-24 11:28
PROVIDERS: ADMIT Internal Medicine; ATTEND Internal Medicine
PROC: 0QS636Z Reposition Right Upper Femur with Intramedullary Internal Fixation Device, Percutaneous Approach (ICD-10-PCS; principal; 2020-03-23 14:00)
DX: S72.141A Displaced intertrochanteric fracture of right femur, initial encounter for closed fracture (principal); A41.9 Sepsis, unspecified organism; J96.01 Acute respiratory failure with hypoxia; J15.6 Pneumonia due to other Gram-negative bacteria; J44.0 Chronic obstructive pulmonary disease with (acute) lower respiratory infection; I48.20 Chronic atrial fibrillation, unspecified; I50.20 Unspecified systolic (congestive) heart failure; D68.69 Other thrombophilia; J44.1 Chronic obstructive pulmonary disease with (acute) exacerbation; R71.0 Precipitous drop in hematocrit; I71.4 Abdominal aortic aneurysm, without rupture; I73.9 Peripheral vascular disease, unspecified; E88.09 Other disorders of plasma-protein metabolism, not elsewhere classified; M81.0 Age-related osteoporosis without current pathological fracture; I25.119 Atherosclerotic heart disease of native coronary artery with unspecified angina pectoris; I11.0 Hypertensive heart disease with heart failure; W18.39XA Other fall on same level, initial encounter; Z66 Do not resuscitate; Z20.828 Contact with and (suspected) exposure to other viral communicable diseases; R13.10 Dysphagia, unspecified; R53.81 Other malaise; F01.50 Vascular dementia, unspecified severity, without behavioral disturbance, psychotic disturbance, mood disturbance, and anxiety; D63.8 Anemia in other chronic diseases classified elsewhere; E87.6 Hypokalemia; Y93.89 Activity, other specified; Y92.89 Other specified places as the place of occurrence of the external cause; Y99.9 Unspecified external cause status; Z79.899 Other long term (current) drug therapy; Z87.891 Personal history of nicotine dependence; R07.9 Chest pain, unspecified
CPT/HCPCS: 36415; 36430; 36600; 71045; 76000; 80048; 80053; 80076; 80202; 81003; 82040; 82803; 82962; 83605; 83735; 84100; 84443; 84484; 85014; 85018; 85025; 85610; 86850; 86900; 86923; 87040; 87635; 93005; 93306; 93970; 96374; 96375; 99285; C1713; G0378; J0690; J0696; J1100; J1170; J2175; J2405; J2543; J2704; J3010; J3370; J0330; J0360; J2270; J2920; J2930; J7030; J7050; J7121; J7512; P9016